=== PATIENT | male | born 1980 | race Caucasian/White ===

== ENCOUNTER 2018-05-17 11:18 | Emergency (ER) | payer OTHER ==
[~2018-05-17] VITALS: Ht 175.3 cm; Wt 122.0 kg
[2018-05-17 11:25] VITALS: Ht 175.3 cm; Wt 122.0 kg
[2018-05-17] MEDS ORDERED: ASPIRIN 325 MG TAB PO STA (11:33)
[2018-05-17] MEDS ORDERED: SOD CHLORIDE 0.9% 1,000 ML IV STA (11:44)
[2018-05-17] MEDS ORDERED: SOD CHLORIDE 0.9% 100 ML ONE (13:25)
[2018-05-17] MEDS ORDERED: IOHEXOL 100 ML ONE (13:25)
--- NOTE | 2018-05-17 13:50 | ERD ---
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 He stated he was expressing palpitations. The patient has a fit bit watch and indicated that his heart rate at that time was 143. He denied any chest pressure that radiated to the neck arm back or jaw contrary to the triage note. However he did state that he was experiencing a dull achy chest pain that was worse with inspiration. He stated the palpitations persisted. He was also experiencing mild shortness of breath. Shortness of breath is at rest. He did state that the palpitations worsened and then he started to develop some pain in his left upper back. The patient had no recent fever shaking or chills. He denies any calf tenderness. The patient did indicate that 1 month ago he was diagnosed wit h pneumonia. He was placed on Levaquin and steroids. He indicated that he completed a course of further steroids 1 week prior to arrival for sinusitis. He does not smoke tobacco. He has no history of coronary artery disease in first-degree relatives. He denies any abdominal pain or lower back pain. ROS All systems reviewed and are negative except as per history of present illness. PMhx/Soc Medical and Surgical Hx: pt denies Medical Hx, pt denies Surgical Hx Hx Alcohol Use: No Hx Substance Use: No Hx Tobacco Use: No Smoking Status: Never smoker Physical Exam Vitals Vital Signs Date Temp Pulse Resp B/P (MAP) Pulse Ox O2 O2 Flow FiO2 Time Delivery Rate 05/17/18 98.9 113 18 132/91 96 11:25 (105) Physical Exam Constitutional:Well-developed. Well-nourished. HEENT:Normocephalic. Atraumatic.Pupils were equal round reactive to light. Dry mucous membranes.No tonsillar exudates. Neck: No nuchal rigidity. No lymphadenopathy. No posterior cervical spine tenderness or step-offs. Respiratory: Not using accessory muscles of respiration.Lungs were clear to auscultation bilaterally. No rhonchi. No rales. No wheezing. Cardiovascular: Regular rate regular rhythm.No murmurs. No rubs were appreciated.S1, S2 normal. Distal pulses are palpable 2+ bilaterally. GI: Abdomen was soft. Nontender. Non Distended. No pulsatile abdominal masses or bruits. No rebound. No guarding. Bowel sounds were present and normal. Muscle skeletal: Full range of motion of both the upper and lower extremities bilaterally.Normal muscle tone.No assymetrical calf tenderness or swelling. Skin: No petechia, no purpura. No lesions on the palms or the soles of the feet. No maculopapular rash. NEURO: Patient was alert, awake, orientated x3.No facial droop. Gait observed and normal with no ataxia.Speech had regular rate and rhythm. No focal neurological deficits. Result Diagram: 05/17/18 1243 05/17/18 1243 Results 24 hrs Laboratory Tests Test 05/17/18 12:43 White Blood Count 12.9 10^3/ul Red Blood Count 4.62 10^6/ul Hemoglobin 13.9 g/dl Hematocrit 41.4 % Mean Corpuscular Volume 89.6 fl Mean Corpuscular Hemoglobin 30.1 pg Mean Corpuscular Hemoglobin Concent 33.6 g/dl Red Cell Distribution Width 13.0 % Platelet Count 314 10^3/UL Mean Platelet Volume 10.3 fl Immature Granulocytes % 0.500 % Neutrophils % 77.5 % Lymphocytes % 15.1 % Monocytes % 5.9 % Eosinophils % 0.3 % Basophils % 0.7 % Nucleated Red Blood Cells % 0.0 /100WBC Immature Granulocytes # 0.070 10^3/ul Neutrophils # 10.0 10^3/ul Lymphocytes # 2.0 10^3/ul Monocytes # 0.8 10^3/ul Eosinophils # 0.0 10^3/ul Basophils # 0.1 10^3/ul Nucleated Red Blood Cells # 0.0 10^3/ul Prothrombin Time 13.0 Sec Prothrombin Time Ratio 1.0 INR International Normalized Ratio 0.97 Activated Partial Thromboplast Time 38.4 Sec Sodium Level 144 mmol/L Potassium Level 4.5 mmol/L Chloride Level 107 mmol/L Carbon Dioxide Level 27 mmol/L Anion Gap 10 Blood Urea Nitrogen 13 mg/dl Creatinine 0.72 mg/dl Est Glomerular Filtrat Rate mL/min > 60 mL/min Glucose Level 91 mg/dl Calcium Level 10.0 mg/dl Total Bilirubin 0.3 mg/dl Direct Bilirubin 0.00 mg/dl Indirect Bilirubin 0.3 mg/dl Aspartate Amino Transf (AST/SGOT) 25 IU/L Alanine Aminotransferase (ALT/SGPT) 19 IU/L Alkaline Phosphatase 64 IU/L Creatine Kinase 76 IU/L Creatine Kinase Index 0.3 Creatinine Kinase MB (Mass) < 0.22 ng/ml Troponin I < 0.012 ng/ml B-Type Natriuretic Peptide 91 PG/ML Total Protein 7.7 g/dl Albumin 4.2 g/dl Globulin 3.50 g/dl Albumin/Globulin Ratio 1.20 Lipase 61 U/L Current Medications Medications Dose Sig/Jose Start Time Status Last (Trade) Ordered Route PRN Stop Time Admin Dose Reason Admin Aspirin 325 mg ONCE STAT 05/17/18 DC (Aspirin) PO 11:33 05/17/18 11:34 Sodium 1,000 ml @ Q1H STAT 05/17/18 DC 05/17/18 Chloride 1,000 mls/hr IV 11:44 12:32 05/17/18 12:43 IV Flush 10 ml STK-MED 05/17/18 DC (NS 10 ml) ONCE .ROUTE 13:25 05/17/18 13:26 Sodium 100 ml @ ud STK-MED 05/17/18 DC Chloride ONCE .ROUTE 13:25 05/17/18 13:26 Iohexol 100 ml @ ud STK-MED 05/17/18 DC ONCE .ROUTE 13:25 05/17/18 13:26 Procedures/MDM The patient presented to the emergency department complaining of chest pain. 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 The patient was brought by EMS and already received aspirin in route. 12 Lead EKG tracing ordered and reviewed by myself showed: Sinus tachycardia 104 bpm and no arrhythmia. OK interval normal. QRS duration normal. No ST segment elevation No ST segment depression. No changes consistent with acute ischemia. The patient did receive a liter bolus of normal saline for mild clinical dehydration. The patient has a high pretest probability according to the Wells criteria for pulmonary embolism. Therefore I obtained a CT scan of the patient's chest. There is no evidence of pulmonary embolism. I did feel his symptoms could likely be result of pleurisy given that he had a recent diagnosis of pneumonia which has resolved. The patients chest pain was reproduced by palpation and horizontal flexion of the arms. It was my clinical impression that the pain was a result of inflammation of the skin and subcutaneous structures of the chest wall versus myocardial ischemia. I felt the patient had low-risk chest pain and could therefore be safely discharged with close follow-up. The patient was given IV Toradol. Departure Diagnosis: Primary Impression: Pleurisy Condition: EDMOND Burch MD May 17, 2018 13:50
[2018-05-17] MEDS ORDERED: KETOROLAC 30 MG INJ IV STA (13:51)
[2018-05-17] MEDS ORDERED: IBUP-1542 PO (13:52)
[2018-05-17 13:54] VITALS: BP 131/81; PULSE 92; RESP 16
== END 2018-05-17 14:23 | disposition home or self-care (01) ==
LOC: E/R 11:18
DX: R09.1 Pleurisy (principal)
CPT/HCPCS: 71045; 71275; 80053; 82550; 82553; 83690; 83880; 84484; 85025; 85610; 85730; 93005; 96361; 96374; 99285; J1885; J7030; Q9967